=== PATIENT | male | born 1935 | race African-American/Black ===

== ENCOUNTER 2018-11-30 21:12 | Inpatient (IN) | payer MEDICARE ==
[2018-12-01] MEDS ORDERED: Aspirin 325 MG TAB ONE (04:50)
[2018-12-01 06:28] VITALS: BMI 27.8
--- NOTE | 2018-12-01 07:20 | ULT ---
LEFT LOWER EXTREMITY DOPPLER VENOUS ULTRASOUND: Date: 12/01/18 INDICATION: Left lower extremity pain and edema for 1 week with left lower extremity redness for 2 days. TECHNIQUE: Jacinto scale, color Doppler, and vascular duplex with spectral analysis was performed of the deep venou s structures of the left lower extremity. The common femoral vein, superficial femoral vein, proximal greater saphenous vein, proximal greater profunda vein, popliteal, and posterior tibial veins were a ssessed. FINDINGS: Normal compression, flow, and augmentation was seen within the deep venous structures of the left low er extremity. There is mild soft tissue edema seen posterior to the left knee. There are mildly promi nent lymph nodes within the left inguinal region. IMPRESSION: 1. No evidence of deep venous thrombosis within the left lower extremity. 2. Mildly prominent lymph nodes of left inguinal region. 3. Nonspecific subcutaneous edema posterior to the left knee. POS: OFF
[2018-12-01] MEDS ORDERED: hydrALAZINE 20 MG/ML VIAL SLOW IVP PRN (09:14)
[2018-12-01] MEDS: Vancomycin HCl 1 GM in Premix Bag 1 BAG IVPB SCH ×2 (09:56→21:04)
--- NOTE | 2018-12-01 10:06 | HP ---
PRIMARY CARE PHYSICIAN: Dr. Rios. CHIEF COMPLAINT: Swelling in the left leg as well as my right arm and leg are not working. HISTORY OF PRESENT ILLNESS: Mr. Whitaker is a pleasant 83-year-old gentleman, who has a history of hypertension, atrial fibrillation, and heart failure. He is not on anticoagulation due to a GI bleed. He says that everything started on . He says that he tried to get up and noticed that he was having difficulty with his strength in his right arm as he was trying to prop himself up, and then, he says he was not able to walk correctly either. He says he also noticed on , some swelling in his left leg as well as fever. He says prior to this, he was actually feeling well. He also noted some soreness in his left leg as well, and for this reason, he went to his primary care physician's office, who then sent him to the hospital [facility] in [place] to get evaluated. Due to the concerns for possible stroke as well as cellulitis in the left leg, he was sent to our facility for further evaluation. The patient denies any chest pain or shortness of breath. He denies any abdominal pain. He did say he vomited on as well, but no vomiting of any blood, and he does admit to some dark stools as well. REVIEW OF SYSTEMS: CONSTITUTIONAL: He has had subjective fever, but no chills, no night sweats, no weight loss. HEENT: He denies any headaches. No dizziness. No visual changes. No sore throat. No rhinorrhea or neck pain. No adenopathy. PULMONARY: No hemoptysis. No cough. No wheezing. CARDIOVASCULAR: He denies any chest pain. No shortness of breath. No PND. No orthopnea. GASTROINTESTINAL: No abdominal pain. No nausea. No vomiting. No change in bowels. He did have some nausea and vomiting that is on , but no change in bowels. GENITOURINARY: No urinary frequency or hematuria. No hesitancy. NEUROLOGIC: As in the history of present illness. SKIN AND INTEGUMENT: He notices some redness as well as swelling in the left lower extremity. ENDOCRINE: No heat or cold intolerance. PAST MEDICAL HISTORY: Significant for transient ischemic attack, atrial fibrillation, congestive heart failure unknown type, coronary artery disease, cerebral vascular disease, hypertension, GI bleed a year ago, and COPD. PAST SURGICAL HISTORY: He has had a stent in the left lower extremity, back surgery. He had cardiac catheterization, shoulder surgery, and spine surgery. ALLERGIES: NO KNOWN DRUG ALLERGIES. SOCIAL HISTORY: He is . He smokes about a cigarette a day. Prior to that, he did smoke heavier. Denies any alcohol use. He has 9 children, and he would like to be a full code. FAMILY HISTORY: Significant for diabetes in his mother, sister, and brother. CURRENT MEDICATIONS: His current medications are taken from the records from the [facility] in [place] and these include, 1. Allopurinol 100 mg daily. 2. Aspirin 81 mg daily. 3. Lipitor 20 mg daily. 4. Carvedilol 3.125 mg twice a day. 5. Omnicef 300 mg daily. 6. Vitamin D3 1000 units daily. 7. CoQ10 100 mg daily. 8. Ferrous gluconate 324 mg daily. 9. Lasix 40 mg daily. 10. Apresoline 25 mg daily. 11. Isosorbide mononitrate extended release 30 mg daily. 12. Magnesium oxide 400 mg daily. 13. Nitrostat 0.4 sublingual daily. PHYSICAL EXAMINATION: GENERAL: He is alert and oriented. He appears to be in no acute distress. He is well developed and well nourished. VITAL SIGNS: Blood pressure is 123/60, heart rate is 92, respiratory rate of 16, temperature is 98.7. HEENT: Pupils are equal, round, and reactive. Extraocular muscles are intact. Sclerae are anicteric. Throat, there is no erythema, no exudates. NECK: No adenopathy. No bruits. LUNGS: Clear to auscultation. There is no wheezing, no rales, no rhonchi. CARDIOVASCULAR: He has a normal S1 and S2. His heart rate is irregular. There are no murmurs or clicks. No rubs. ABDOMEN: Soft. It is nontender and nondistended. Positive for bowel sounds. There is no rebound, no guarding, no organomegaly. EXTREMITIES: He has significant swelling in the left lower extremity below the knee, all the way from the knee down. The left leg is about twice as large as the right. It is erythematous. He does have some chronic venous stasis changes. There is some warmth to the area as well. NEUROLOGIC: He has decrease in his both upper and lower extremity strength on the right, which is quite prominent as compared to the left. However, again his cranial nerves are intact. There is no facial droop. SKIN: His skin again had the chronic skin changes and some erythema and also some mycotic nails. LABORATORY DATA: Lab results from the [facility] includes a white blood cell count of 13.3, hemoglobin of 8.7, hematocrit is 26.2. Glucose is 104, creatinine is 2.34. IMAGING STUDIES: CT of the brain showed no lobar infarct. There was no hemorrhage or mass, and there were some chronic ischemic changes. The patient had an EKG, which was atrial fibrillation and the heart rate is 104. This is by my reading. ASSESSMENT: This is a pleasant 83-year-old gentleman, who presents to the emergency room with, 1. Right-sided weakness. This is likely due to a CVA, possibly due to his atrial fibrillation as he is not currently on anticoagulation. He will be admitted, and we will get an MRI of the brain as well as an echo and carotid Dopplers and consider consulting Cardiology with regard to whether or not to resume anticoagulation. 2. Left lower extremity cellulitis. He had a venous ultrasound, which was negative for DVT. We will continue broad-spectrum antibiotics. He will likely need a couple of days of IV antibiotics due to the stents in place, and then, hopefully, can switch to an oral antibiotic. 3. Anemia. We will do some iron studies to try to determine the type of anemia and monitor the counts. 4. Hypertension. We will need to reconcile and restart his antihypertensive medications as well as p.r.n.'s. 5. Chronic obstructive pulmonary disease. We will continue DuoNeb's as needed and further recommendations to follow. Job ID: [id number]
[2018-12-01] MEDS: hydrALAZINE 25 MG TAB PO SCH ×2 (11:54→17:31)
--- NOTE | 2018-12-01 12:24 | MRI ---
BRAIN MRI WITHOUT CONTRAST: Date: 12/01/18 HISTORY: Transient ischemic attack. COMPARISON: None. FINDINGS: Calvarium has a normal T1 marrow signal intensity. Midline brain parenchymal structures are unremarka ble. No hemorrhage on the axial gradient echo sequence. Small focus of hypointensity in the left lentiform nucleus likely due to remote hemorrhagic lacunar infarct. No parenchymal mass, mass effect, or midline shift. Brain volume is age-appropriate. Cortical elkins-wh ite matter differentiation is preserved, with the exception of the left temporoparietal region. There is malacic and gliotic change in this region, likely due to remote insult. There is a cortical/subco rtical T2 and FLAIR hyperintensity along the medial aspect of the right occipital lobe. There is a se cond similar appearance also noted in the right occipital lobe. Two regions of cortical infarction ar e suspected, involving the right [employer]IONICS ELECTRICAL ENGINEER distribution. Additionally, there appears to be a focus of restr icted diffusion involving the right cerebellar hemisphere. Adequate aeration of the sinuses and mastoid air cells. Central arterial flow-voids are maintained. Extensive white matter Hypointensities due to chronic small vessel ischemic changes are noted. There is a mucus retention cyst in the left maxillary sinus. IMPRESSION: 1. Right [employer] ELECT[employer]ICAL ENGINEER distribution infarct. 2. Remote insult with malacic and gliotic change in the left temporoparietal region. 3. Extensive white matter hyperintensities due to chronic small vessel ischemic change. POS: JOANN
[2018-12-01 12:28] LABS: Iron 9 ug/dL (65-175); Iron Binding Capacity, Total 240 mcg/dL (261-462)
[2018-12-01] MEDS: Piperacillin/Tazobactam 2.25 GM in Sodium Chloride 0.9% 100 ML IVPB SCH ×2 (14:08→21:01)
[2018-12-01] MEDS: Heparin 5,000 UNITS/ML VIAL SC SCH ×2 (14:09→21:03)
--- NOTE | 2018-12-01 15:59 | ULT ---
US Carotid Doppler STANDARD History: Infarction Comparison: None. Findings: Real-time grayscale, color, and spectral analysis of the extracranial carotid and vertebral arteries was performed. Antegrade flow both vertebral arteries. No elevated peak systolic velocities within the internal omalley tid arteries. Right ICA/CCA ratio is 1.46 and left ICA/CCA ratio is 1.20. Impression: No hemodynamically significant stenosis.
[2018-12-01] MEDS ORDERED: Non-Formulary Item 1 EACH (Ferrous Sulfate 325 MG) PO SCH (17:00)
[2018-12-01] MEDS: Ferrous Sulfate 325 MG TAB PO SCH (17:31)
[2018-12-01] MEDS ORDERED: Prevnar 13-Val Conj/PF 0.5 ML SYRINGE IM ONE (21:00)
[2018-12-01] MEDS: Acetaminophen 325 MG TAB PO PRN (21:02)
[2018-12-01] MEDS: Atorvastatin Calcium 40 MG TAB PO SCH (21:03)
--- NOTE | 2018-12-01 23:31 | CON ---
DATE OF CONSULTATION: 12/01/2018 CONSULTING PHYSICIAN: Hospitalist Service. IMPRESSION: 1. 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 2. 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 3. Aspirin failure. PLAN: 1. Add Plavix. 2. Review carotid ultrasound. 3. PT evaluation. HISTORY OF PRESENT ILLNESS: Mr. Whitaker is an 83-year-old gentleman, who reports that he noticed he was having difficulty getting up from his chair. He felt like the left side was not responding appropriately. There was no associated headache or blurred vision. He had a prior stroke a few years back, resulting in some transient right-sided weakness. He reports he is pretty much back to his baseline prior to this new event. He had been compliant with his aspirin and statin. PAST MEDICAL HISTORY: Hypertension, hyperlipidemia, stroke. ALLERGIES: NONE. SOCIAL HISTORY: No tobacco use. FAMILY HISTORY: Noncontributory. REVIEW OF SYSTEMS: Ten-system review of systems is otherwise negative. PHYSICAL EXAMINATION: GENERAL: He is a healthy-appearing elderly man, in no acute distress. VITAL SIGNS: Have been stable. He is afebrile. HEENT: Pupils are equal. Conjunctivae clear. Oropharynx clear. Cranium, normocephalic and atraumatic. NECK: Supple. No lymphadenopathy. EXTREMITIES: 3+ edema in the legs. NEUROLOGIC: Alert and appropriate. His speech is fluent and clear. He follows commands appropriately. There was no facial asymmetry. No fix or drift was noted. Rapid alternating movements were equal. He had some proximal weakness in the right shoulder. He can raise both legs against gravity. Sensation was intact to touch. Gait was not tested. LABORATORY DATA: EKG showed some atrial fibrillation, apparently was transient. SUMMARY: This elderly man with a new stroke in the posterior cerebral arteries, had distribution. He was compliant with his medication. Given his age, I would add Plavix rather than anticoagulate him at this point. We have therapy to assess his gait to see how stable he is before he is discharged home. He has been getting around with a cane prior to admission. He is requesting a wheelchair. Job ID: [id number]
[2018-12-02 04:22] LABS: Anion Gap 17 mmol/L (10-20); BUN (Urea Nitrogen) 50 mg/dL (8.4-25.7); Calc. Creatinine Clearance 34 mL/min (70-130); Calcium 9.2 mg/dL (7.8-10.44); Carbon Dioxide 20 mmol/L (23-31); Cardiac Risk 2.2 (Less than 4.5); Chloride 102 mmol/L (98-107); Cholesterol 66 mg/dl (< 200 Desired); Estimated GFR-MDRD 43; Glucose 109 mg/dL (83-110); HDL Cholesterol 30 mg/dL (>60 Neg Risk); LDL Cholesterol, Calculated 20 mg/dL; Sodium 135 mmol/L (136-145); Triglycerides 82 mg/dL (Less than 150)
[2018-12-02 05:23] LABS: Anisocytosis SLIGHT = 6-15 cells (100X) (0-5/hpf); Band 10 % (5-11); Eosinophils 2 % (0-10); Hemoglobin 9.4 g/dL (14.0-18.0); Lymphocytes 9 % (21-51); MDiff Complete? YES; Macrocytosis SLIGHT = 6-15 cells (100X) (0-5/hpf); Mean Corpuscular HGB CONC 32.7 g/dL (32.0-36.0); Mean Corpuscular Hemoglobin 34.3 pg (27.0-31.0); Monocytes 11 % (0-10); Neutrophil 68 % (42-75); Platelet Count 185 thou/uL (130-400); RBC Distribution Width 16.1 % (11.5-14.5); Red Blood Cell (RBC) Count 2.75 mill/uL (4.70-6.10); White Blood Cell (WBC) Count 11.9 thou/uL (4.8-10.8)
[2018-12-02] MEDS: Piperacillin/Tazobactam 2.25 GM in Sodium Chloride 0.9% 100 ML IVPB SCH ×3 (07:30→20:58)
[2018-12-02] MEDS ORDERED: CHOLECALCIFEROL 1000 MG PO SCH (09:00)
[2018-12-02] MEDS ORDERED: Non-Formulary Item 1 EACH (Ubidecarenone [Coq-10] 100 MG) PO SCH (09:00)
[2018-12-02] MEDS ORDERED: Aspirin 325 mg Enteric Coated Tablet PO SCH (09:00)
[2018-12-02] MEDS ORDERED: Furosemide 80 MG TAB PO SCH (09:00)
--- NOTE | 2018-12-02 09:17 | PDOC.HOSPP ---
- Subjective Encounter Date: 12/02/18 Encounter Time: 09:16 Subjective: Mr. Whitaker was seen today in follow-up of Right sided weakness and Left leg swelling. He notes more swelling in his left leg, it is now oozing fluid. He notes a bit improved strength in the right leg. - Objective Vital Signs & Weight: Vital Signs (12 hours) Temp Pulse Resp BP Pulse Ox 12/02/18 04:00 98.7 F 94 19 133/62 99 12/01/18 23:51 99.7 F H 99 18 130/60 98 Weight Admit Weight 172 lb 12.8 oz Weight 172 lb 12.8 oz I&O: 12/01/18 12/02/18 12/03/18 06:59 06:59 06:59 Intake Total 300 480 Output Total 400 300 Balance -100 180 Result Diagrams: 12/02/18 03:41 12/02/18 03:41 ROS - Medication Medications: Active Medications Generic Name Dose Route Start Last Admin Trade Name Freq PRN Reason Stop Dose Admin Acetaminophen 650 mg 12/01/18 09:14 12/01/18 21:02 Tylenol PO 650 mg Q4H PRN Administration Headache/Fever/Mild Pain (1-3) Atorvastatin Calcium 40 mg 12/01/18 21:00 12/01/18 21:03 Lipitor PO 40 mg HS JASS Administration Ferrous Sulfate 325 mg 12/01/18 17:00 12/01/18 17:31 Feosol PO 325 mg BID-WM JASS Administration Heparin Sodium (Porcine) 5,000 units 12/01/18 15:00 12/01/18 21:03 Heparin SC 5,000 units TID JASS Administration Hydralazine HCl 25 mg 12/01/18 12:00 12/01/18 17:31 Apresoline PO 25 mg TID-WM JASS Administration Piperacillin Sod/Tazobactam 100 mls @ 200 mls/hr 12/01/18 14:00 12/02/18 07: 30 Sod 2.25 gm/ Sodium Chloride IVPB 100 mls Q8HR JASS Administration Vancomycin HCl 1 gm/ Device 200 mls @ 200 mls/hr 12/01/18 10:00 12/01/18 21: 04 IVPB 200 mls 1000,2200 JASS Administration Sodium Chloride 10 ml 12/01/18 09:14 12/01/18 21:04 Flush - Normal Saline IVF 10 ml PRN PRN Administration Saline Flush - Exam Eye: PERRL, anicteric sclera Heart: no murmur, no gallops, no rubs, irregular Respiratory: CTAB, no wheezes, no rales, no ronchi, normal chest expansion, no tachypnea, normal percussion Gastrointestinal: soft, non-tender, non-distended, normal bowel sounds, no palpable masses, no hepatomegaly, no splenomegaly Extremities: 2+ LE edema (Tense edema in the left lower extremity with oozing, + erythema and warmth) Hosp A/P (1) Acute CVA (cerebrovascular accident) Code(s): I63.9 - CEREBRAL INFARCTION, UNSPECIFIED Status: Acute (2) Cellulitis of left leg Code(s): L03.116 - CELLULITIS OF LEFT LOWER LIMB Status: Acute (3) Macrocytic anemia Code(s): D53.9 - NUTRITIONAL ANEMIA, UNSPECIFIED Status: Acute (4) GI bleed Code(s): K92.2 - GASTROINTESTINAL HEMORRHAGE, UNSPECIFIED Status: Acute (5) Afib Code(s): I48.91 - UNSPECIFIED ATRIAL FIBRILLATION Status: Chronic - Plan * Acute CVA- discussed with the patient- this is likely due to AFIB- as he has not been on anticoagulation due to previous GI- bleeds * Cellulitis of the left leg- continue IV antibiotics- will repeat the venous ultrasound ( serial US) to rule out DVT, as the leg has extreme swelling, with oozing- keep elevated * Anemia- chronic- he says he sees a [facility], and gets Epogen injections and is on iron therapy. He says he has had a full GI work-up in the past including a capsule study in [facility], and they could not find out the etiology of the Bleed. * Chronic AFIB- will consult Cardiology- see if he can re-start anticoagulation * Await Neurology consult * PT/OT
[2018-12-02 10:40] LABS: Folate (Folic Acid) 10.9 ng/mL (7.0-31.4)
[2018-12-02] MEDS: Furosemide 40 MG TAB PO SCH (10:44)
[2018-12-02] MEDS: Ferrous Sulfate 325 MG TAB PO SCH ×2 (10:44→16:53)
[2018-12-02] MEDS: Ubidecarenone 50 MG CAP PO SCH (10:44)
[2018-12-02] MEDS: hydrALAZINE 25 MG TAB PO SCH ×3 (10:44→16:53)
[2018-12-02] MEDS: Allopurinol 100 MG TAB PO SCH (10:45)
[2018-12-02] MEDS: Isosorbide Mononitrate (ER) 30 MG TAB PO SCH (10:46)
[2018-12-02] MEDS: Heparin 5,000 UNITS/ML VIAL SC SCH ×3 (10:46→20:59)
--- NOTE | 2018-12-02 11:00 | ULT ---
EXAM: Left lower extremity venous duplex: Deep veins evaluated with color Doppler, spectral analysis, and compression. INDICATIONS: Left lower extremity pain and edema. FINDINGS: Deep veins interrogated include common femoral vein, femoral vein, popliteal vein, and post erior tibial vein. These veins show normal compression and blood flow. No evidence of DVT. Incidental note of prominent lymph nodes of the left inguinal region. There is soft tissue edema. Cor relate clinically. IMPRESSION: No evidence of DVT. Additional findings are detailed above.
[2018-12-02] MEDS: Vancomycin HCl 1 GM in Premix Bag 1 BAG IVPB SCH ×3 (12:05→22:13)
[2018-12-02] MEDS: Acetaminophen 325 MG TAB PO PRN ×2 (16:54→20:59)
--- NOTE | 2018-12-02 17:47 | CON ---
DATE OF CONSULTATION: 12/02/2018 REASON FOR CONSULTATION: Atrial fibrillation, recurrent stroke. HISTORY OF PRESENT ILLNESS: Mr. Whitaker is a very pleasant elderly gentleman, who was admitted to the hospital with acute stroke. The patient was on aspirin when this occurred. He has taken aspirin 81 mg a day. He underwent evaluation here. He was found to be mildly anemic, which is a chronic problem. He also had MRI of the brain, which revealed right posterior cerebral artery distribution infarct. Also, there is evidence of previous strokes. Also, he has history of coronary artery disease, the details are not available to me. The patient's family states he was previously on I believe aspirin plus Coumadin. They know his Coumadin, but he kept having to get recurrent blood transfusions. It is endoscopies to confine the source of bleeding. He was also placed on Eliquis, unknown dose, but had recurrent bleeding, ultimately he was taken off these medicines, but left on aspirin. The patient did have a hemoglobin of 8.1 back in 2016. At that time, he had been on Plavix and Coumadin. I believe he is also on aspirin as well from what I can tell from the notes. The patient has been seeing in [place]. PHYSICAL EXAMINATION: GENERAL: This is a pleasant elderly gentleman, in no distress. He says he is cold. VITAL SIGNS: Blood pressure 143/65 and pulse 100, it is irregular. LUNGS: Clear. CARDIAC: Irregularly irregular. ABDOMEN: Soft and nontender. EXTREMITIES: There is moderate peripheral edema. PERTINENT LABORATORIES: Creatinine is 1.83 and estimated GFR is 43. Iron level is 9 and ferritin 133. Cholesterol is 20. EKG, atrial fibrillation. ASSESSMENT: 1. Chronic atrial fibrillation. 2. Recurrent stroke, embolic on aspirin. 3. He has a history of cellulitis. 4. History of gastrointestinal blood loss on anticoagulants plus Plavix. PLAN: Difficult situation discussed with the family. We could try a low dose Eliquis without aspirin. They are not sure if that ever been tried. Explained aspirin alone or even aspirin plus Plavix will not give him protection from embolic stroke from his heart with atrial fibrillation. Unfortunately, this is a different kind of thrombus, which does not respond to antiplatelet drugs. After some consideration the best option is to stop the aspirin, wait a few days and then began reduced dose Eliquis. If he is able to tolerate that, consideration for Watchman could be done long-term. For now, we will stop the aspirin, wait a few days and start Eliquis. Continue to monitor blood counts. He sees weekly. Therefore, the blood count should be monitored. If his blood counts are dropping, then we could take him off Eliquis, put him back on aspirin, but then it would not be feasible to put a Watchman left atrial appendage occlusion device in place as that he needs to be on Eliquis for at least 6 weeks following the procedure and usually for couple weeks prior to the procedure. In that case, he should be on aspirin alone, but unfortunately would not be protected from a recurrent embolic stroke from atrial fibrillation. Difficult situation discussed in detail with the family. Job ID: [id number]
[2018-12-02] MEDS: Atorvastatin Calcium 40 MG TAB PO SCH (20:59)
[2018-12-02] MEDS ORDERED: Iron, Sodium Ferric Gluconate 250 MG in Sodium Chloride 0.9% 100 ML IVPB SCH (21:00)
[2018-12-02 21:54] LABS: Vancomycin, Trough 27.2 ug/mL
[2018-12-03] MEDS: Piperacillin/Tazobactam 2.25 GM in Sodium Chloride 0.9% 100 ML IVPB SCH ×3 (05:34→21:21)
[2018-12-03] MEDS: hydrALAZINE 25 MG TAB PO SCH ×3 (08:45→17:50)
[2018-12-03] MEDS: Allopurinol 100 MG TAB PO SCH (08:46)
[2018-12-03] MEDS: Ubidecarenone 50 MG CAP PO SCH (08:46)
[2018-12-03] MEDS: Isosorbide Mononitrate (ER) 30 MG TAB PO SCH (08:47)
[2018-12-03] MEDS: Heparin 5,000 UNITS/ML VIAL SC SCH (08:47)
[2018-12-03] MEDS: Ferrous Sulfate 325 MG TAB PO SCH ×2 (08:47→17:54)
[2018-12-03] MEDS: Furosemide 40 MG TAB PO SCH (08:47)
[2018-12-03] MEDS ORDERED: Furosemide 40 MG TAB PO SCH (09:38)
[2018-12-03] MEDS: Furosemide 40 MG/4 ML VIAL SLOW IVP SCH (15:26)
[2018-12-03] MEDS: Apixaban 2.5 MG TAB PO SCH (21:20)
[2018-12-03] MEDS: Atorvastatin Calcium 40 MG TAB PO SCH (21:20)
[2018-12-03] MEDS ORDERED: Vancomycin HCl 1.5 GM in Sodium Chloride 0.9% 250 ML 300 ML IVPB SCH (22:00)
[2018-12-04 05:52] LABS: ALT (SGPT) 50 U/L (8-55); AST (SGOT) 56 U/L (5-34); Albumin 2.9 g/dL (3.4-4.8); Alkaline Phosphatase 167 U/L (40-150); Anion Gap 12 mmol/L (10-20); BUN (Urea Nitrogen) 36 mg/dL (8.4-25.7); Bilirubin, Total 0.9 mg/dL (0.2-1.2); Calc. Creatinine Clearance 34 mL/min (70-130); Calcium 9.1 mg/dL (7.8-10.44); Carbon Dioxide 25 mmol/L (23-31); Chloride 102 mmol/L (98-107); Estimated GFR-MDRD 44; Globulin 4.3 g/dL (2.4-3.5); Glucose 155 mg/dL (83-110); Potassium 3.7 mmol/L (3.5-5.1); Protein, Total 7.2 g/dL (5.8-8.1); Sodium 135 mmol/L (136-145)
[2018-12-04 05:56] LABS: #Eosinphils 0.1 thou/uL (0.0-0.7); #Monocytes 1.1 thou/uL (0.11-0.59); #Neutrophils 11.3 thou/uL (1.40-6.50); %Basophils 0.1 % (0.0-1.0); %Eosinophils 0.8 % (0.0-10.0); %Lymphocytes 7.6 % (21.0-51.0); %Monocytes 8.3 % (0.0-10.0); %Neutrophils 83.2 % (42.0-75.0); Hemoglobin 7.9 g/dL (14.0-18.0); Mean Corpuscular HGB CONC 31.7 g/dL (32.0-36.0); Mean Corpuscular Hemoglobin 33.2 pg (27.0-31.0); Mean Platelet Volume 8.1 fL (7.4-10.4); Platelet Count 341 thou/uL (130-400); RBC Distribution Width 16.3 % (11.5-14.5); Red Blood Cell (RBC) Count 2.39 mill/uL (4.70-6.10); White Blood Cell (WBC) Count 13.6 thou/uL (4.8-10.8)
[2018-12-04] MEDS: Piperacillin/Tazobactam 2.25 GM in Sodium Chloride 0.9% 100 ML IVPB SCH ×3 (06:25→21:01)
[2018-12-04] MEDS: Furosemide 40 MG/4 ML VIAL SLOW IVP SCH ×2 (06:25→14:15)
[2018-12-04] MEDS ORDERED: Furosemide 80 MG TAB PO SCH (07:30)
[2018-12-04] MEDS: Allopurinol 100 MG TAB PO SCH (08:35)
[2018-12-04] MEDS: Apixaban 2.5 MG TAB PO SCH ×2 (08:35→21:01)
[2018-12-04] MEDS: hydrALAZINE 25 MG TAB PO SCH ×3 (08:35→16:51)
[2018-12-04] MEDS: Ferrous Sulfate 325 MG TAB PO SCH ×2 (08:35→16:52)
[2018-12-04] MEDS: Isosorbide Mononitrate (ER) 30 MG TAB PO SCH (08:36)
[2018-12-04] MEDS: Ubidecarenone 50 MG CAP PO SCH (08:36)
[2018-12-04] MEDS ORDERED: Carvedilol 6.25 MG TAB PO SCH (09:30)
--- NOTE | 2018-12-04 10:21 | PRG ---
DATE OF SERVICE: 12/04/2018 SUBJECTIVE: Mr. Whitaker is doing well. No complaints. He is moving his arms and legs well. No chest pain or pressure. OBJECTIVE: VITAL SIGNS: Blood pressure 130/80, pulse is 100 and it is irregular. LUNGS: Clear. CARDIAC: Irregularly irregular. ABDOMEN: Soft, nontender. ASSESSMENT: 1. Chronic atrial fibrillation. 2. Embolic stroke despite aspirin. 3. History of strokes in the past. 4. History of slowed iron loss, slow gastrointestinal blood loss when he is on anticoagulation. PLAN: Discussed with Dr. Pinzon in [place], who is his primary physical science aide. At this point, it seems the best option would be to stop the aspirin and give him reduced dose Eliquis 2.5 mg twice a day, consideration for trying to get a Watchman device placed. He will need close followup to make sure his hemoglobin is not further dropping. To get a Watchman placed, he would have to be able to tolerate the Eliquis for at least 2 weeks before the procedure, at least 6 weeks afterward. His hemoglobin is 25 this morning. I would recommend watching him one more day in the hospital, and then he will need close followup of his hemoglobin and hematocrit either with Dr. Pinzon or his sld teacher to make sure it is not dropping further. If he is unable to tolerate the Eliquis even short-term, then that will not be an option for him in terms of the Watchman. He will need to follow up with Dr. Pinzon when he goes home. He would like us to refer him to Dr. Ferreira if he is able to tolerate the Eliquis for Watchman, that will be fine or he may have another location director that he likes to work with. Job ID: [id number]
[2018-12-04] MEDS ORDERED: Iron Sucrose Complex 100 MG in Sodium Chloride 0.9% 100 ML IVPB SCH (11:00)
--- NOTE | 2018-12-04 13:13 | PRG ---
DATE OF SERVICE: 12/04/2018 Mr. Whitaker reports that he is feeling well. He denies any new focal neurologic symptoms. He denies any blurred vision or double vision. His carotid ultrasound showed no evidence of stenosis. His echocardiogram showed an ejection fraction of 55% to 60%. He had no other complaints today. On exam, his blood pressure is 121/60, temperature is 98.8. His speech is fluent and clear. There is no facial asymmetry. No focal weakness was noted. No abnormal movements were seen. Mr. Whitaker will continue his Eliquis and Lipitor. Can be discharged home after discretion and will be happy to follow up with him as an outpatient if he has any further problems. Job ID: [id number]
--- NOTE | 2018-12-04 16:37 | PDOC.HOSPP ---
- Subjective Encounter Date: 12/03/18 Encounter Time: 10:30 Subjective: pt up in bed no complains - Objective Vital Signs & Weight: Vital Signs (12 hours) Temp Pulse Pulse Pulse Resp BP BP 12/04/18 16:00 99.4 F 98 20 12/04/18 13:04 107 H 120/56 L 12/04/18 13:03 98.9 F 12/04/18 11:38 99.4 F 107 H 20 12/04/18 10:54 131/85 12/04/18 09:38 109 H 97 134/62 12/04/18 08:35 103 H 131/85 12/04/18 08:29 12/04/18 07:45 98.5 F 103 H 20 BP BP Pulse Ox 12/04/18 16:00 125/58 L 98 12/04/18 13:04 12/04/18 13:03 120/56 L 12/04/18 11:38 126/59 L 100 12/04/18 10:54 12/04/18 09:38 137/70 12/04/18 08:35 12/04/18 08:29 100 12/04/18 07:45 131/85 99 Weight Admit Weight 172 lb 12.8 oz Weight 172 lb 12.8 oz I&O: 12/03/18 12/04/18 12/05/18 06:59 06:59 06:59 Intake Total 1920 1250 Output Total 1879 2015 863 Balance 94 -3348 -950 Result Diagrams: 12/04/18 04:52 12/04/18 04:52 ROS - Review of Systems Respiratory: denies: cough, dry, shortness of breath, hemoptysis, SOB with excertion, pleuritic pain, sputum, wheezing, other Cardiovascular: denies: chest pain, palpitations, orthopnea, paroxysmal noc. dyspnea, edema, light headedness, other Gastrointestinal: denies: nausea, vomitting, abdominal pain, diarrhea, constipation, melena, hematochezia, other - Medication Medications: Active Medications Generic Name Dose Route Start Last Admin Trade Name Freq PRN Reason Stop Dose Admin Acetaminophen 650 mg 12/01/18 09:14 12/02/18 20:59 Tylenol PO 650 mg Q4H PRN Administration Headache/Fever/Mild Pain (1-3) Allopurinol 150 mg 12/02/18 09:00 12/04/18 08:35 Zyloprim PO 150 mg DAILY JASS Administration Apixaban 2.5 mg 12/03/18 21:00 12/04/18 08:35 Eliquis PO 2.5 mg BID JASS Administration Atorvastatin Calcium 40 mg 12/01/18 21:00 12/03/18 21:20 Lipitor PO 40 mg HS JASS Administration Cholecalciferol 1,000 units 12/02/18 09:00 12/04/18 08:36 Vitamin D3 PO 1,000 units DAILY JASS Administration Coenzyme Q10 100 mg 12/02/18 09:00 12/04/18 08:36 Coenzyme Q10 PO 100 mg DAILY JASS Administration Ferrous Sulfate 325 mg 12/01/18 17:00 12/04/18 08:35 Feosol PO 325 mg BID-WM JASS Administration Furosemide 40 mg 12/03/18 14:00 12/04/18 14:15 Lasix SLOW IVP 40 mg 0600,1400 JASS Administration Hydralazine HCl 25 mg 12/01/18 12:00 12/04/18 13:04 Apresoline PO 25 mg TID-WM JASS Administration Piperacillin Sod/Tazobactam 100 mls @ 200 mls/hr 12/01/18 14:00 12/04/18 14: 21 Sod 2.25 gm/ Sodium Chloride IVPB 100 mls Q8HR JASS Administration Isosorbide Mononitrate 30 mg 12/02/18 09:00 12/04/18 08:36 Imdur Er PO 30 mg DAILY JASS Administration Sodium Chloride 10 ml 12/01/18 09:14 12/03/18 21:20 Flush - Normal Saline IVF 10 ml PRN PRN Administration Saline Flush - Exam Neck: negative: supple, symmetric, no JVD, no thyromegaly, no lymphadenopathy, no carotid bruit, JVD Heart: negative: RRR, no murmur, no gallops, no rubs, normal peripheral pulses, irregular, diminshed peripheral pulses, murmur present, II/IV, III/IV Respiratory: negative: CTAB, no wheezes, no rales, no ronchi, normal chest expansion, no tachypnea, normal percussion, rales, rhonchi, tachypneic, wheezes Extremities: 1+ LE edema Extremeties - other findings: left leg Hosp A/P (1) Acute CVA (cerebrovascular accident) Code(s): I63.9 - CEREBRAL INFARCTION, UNSPECIFIED Status: Acute (2) Cellulitis of left leg Code(s): L03.116 - CELLULITIS OF LEFT LOWER LIMB Status: Acute (3) Anemia Code(s): D64.9 - ANEMIA, UNSPECIFIED Status: Acute (4) GI bleed Code(s): K92.2 - GASTROINTESTINAL HEMORRHAGE, UNSPECIFIED Status: Acute (5) Afib Code(s): I48.91 - UNSPECIFIED ATRIAL FIBRILLATION Status: Chronic - Plan will change lasix to iv, will discontinue vanco. will continue to monitor hh. ASA stopped. given his hx of gi bleed will start AC marciano.
--- NOTE | 2018-12-04 16:43 | PDOC.HOSPP ---
- Subjective Encounter Date: 12/04/18 Encounter Time: 11:30 Subjective: pt up in chair no complains - Objective Vital Signs & Weight: Vital Signs (12 hours) Temp Pulse Pulse Pulse Resp BP BP 12/04/18 16:00 99.4 F 98 20 12/04/18 13:04 107 H 120/56 L 12/04/18 13:03 98.9 F 12/04/18 11:38 99.4 F 107 H 20 12/04/18 10:54 131/85 12/04/18 09:38 109 H 97 134/62 12/04/18 08:35 103 H 131/85 12/04/18 08:29 12/04/18 07:45 98.5 F 103 H 20 BP BP Pulse Ox 12/04/18 16:00 125/58 L 98 12/04/18 13:04 12/04/18 13:03 120/56 L 12/04/18 11:38 126/59 L 100 12/04/18 10:54 12/04/18 09:38 137/70 12/04/18 08:35 12/04/18 08:29 100 12/04/18 07:45 131/85 99 Weight Admit Weight 172 lb 12.8 oz Weight 172 lb 12.8 oz I&O: 12/03/18 12/04/18 12/05/18 06:59 06:59 06:59 Intake Total 1920 1250 Output Total 1870 6088 184 Balance 13 -0373 -950 Result Diagrams: 12/04/18 04:52 12/04/18 04:52 ROS - Review of Systems Respiratory: denies: cough, dry, shortness of breath, hemoptysis, SOB with excertion, pleuritic pain, sputum, wheezing, other Cardiovascular: denies: chest pain, palpitations, orthopnea, paroxysmal noc. dyspnea, edema, light headedness, other Gastrointestinal: denies: nausea, vomitting, abdominal pain, diarrhea, constipation, melena, hematochezia, other - Medication Medications: Active Medications Generic Name Dose Route Start Last Admin Trade Name Freq PRN Reason Stop Dose Admin Acetaminophen 650 mg 12/01/18 09:14 12/02/18 20:59 Tylenol PO 650 mg Q4H PRN Administration Headache/Fever/Mild Pain (1-3) Allopurinol 150 mg 12/02/18 09:00 12/04/18 08:35 Zyloprim PO 150 mg DAILY JASS Administration Apixaban 2.5 mg 12/03/18 21:00 12/04/18 08:35 Eliquis PO 2.5 mg BID JASS Administration Atorvastatin Calcium 40 mg 12/01/18 21:00 12/03/18 21:20 Lipitor PO 40 mg HS JASS Administration Cholecalciferol 1,000 units 12/02/18 09:00 12/04/18 08:36 Vitamin D3 PO 1,000 units DAILY JASS Administration Coenzyme Q10 100 mg 12/02/18 09:00 12/04/18 08:36 Coenzyme Q10 PO 100 mg DAILY JASS Administration Ferrous Sulfate 325 mg 12/01/18 17:00 12/04/18 08:35 Feosol PO 325 mg BID-WM JASS Administration Furosemide 40 mg 12/03/18 14:00 12/04/18 14:15 Lasix SLOW IVP 40 mg 0600,1400 JASS Administration Hydralazine HCl 25 mg 12/01/18 12:00 12/04/18 13:04 Apresoline PO 25 mg TID-WM JASS Administration Piperacillin Sod/Tazobactam 100 mls @ 200 mls/hr 12/01/18 14:00 12/04/18 14: 21 Sod 2.25 gm/ Sodium Chloride IVPB 100 mls Q8HR JASS Administration Isosorbide Mononitrate 30 mg 12/02/18 09:00 12/04/18 08:36 Imdur Er PO 30 mg DAILY JASS Administration Sodium Chloride 10 ml 12/01/18 09:14 12/03/18 21:20 Flush - Normal Saline IVF 10 ml PRN PRN Administration Saline Flush - Exam Neck: negative: supple, symmetric, no JVD, no thyromegaly, no lymphadenopathy, no carotid bruit, JVD Heart: negative: RRR, no murmur, no gallops, no rubs, normal peripheral pulses, irregular, diminshed peripheral pulses, murmur present, II/IV, III/IV Respiratory: negative: CTAB, no wheezes, no rales, no ronchi, normal chest expansion, no tachypnea, normal percussion, rales, rhonchi, tachypneic, wheezes Hosp A/P (1) Acute CVA (cerebrovascular accident) Code(s): I63.9 - CEREBRAL INFARCTION, UNSPECIFIED Status: Acute (2) Cellulitis of left leg Code(s): L03.116 - CELLULITIS OF LEFT LOWER LIMB Status: Acute (3) Anemia Code(s): D64.9 - ANEMIA, UNSPECIFIED Status: Acute (4) GI bleed Code(s): K92.2 - GASTROINTESTINAL HEMORRHAGE, UNSPECIFIED Status: Acute (5) Afib Code(s): I48.91 - UNSPECIFIED ATRIAL FIBRILLATION Status: Chronic (6) PVD (peripheral vascular disease) Code(s): I73.9 - PERIPHERAL VASCULAR DISEASE, UNSPECIFIED Status: Chronic - Plan will change lasix to iv, will discontinue vanco. will continue to monitor hh. ASA stopped. given his hx of gi bleed will start AC marciano. 12/04 pt's hh is low, started on Ac will monitor hh if worse will readdress his AC. pt's left leg is wrapped. He does have a stent in his left leg.
[2018-12-04] MEDS: Acetaminophen 325 MG TAB PO PRN (16:58)
[2018-12-04] MEDS ORDERED: Atorvastatin Calcium 20 MG TAB PO SCH (21:00)
[2018-12-04] MEDS: Atorvastatin Calcium 40 MG TAB PO SCH (21:02)
[2018-12-04] MEDS: Carvedilol 3.125 MG TAB PO SCH (21:02)
[2018-12-05] MEDS: Piperacillin/Tazobactam 2.25 GM in Sodium Chloride 0.9% 100 ML IVPB SCH (06:00)
[2018-12-05] MEDS: Furosemide 40 MG/4 ML VIAL SLOW IVP SCH (06:00)
[2018-12-05 06:10] LABS: #Eosinphils 0.1 thou/uL (0.0-0.7); #Lymphocytes 1.3 thou/uL (1.20-3.40); #Monocytes 1.3 thou/uL (0.11-0.59); #Neutrophils 12.5 thou/uL (1.40-6.50); %Eosinophils 0.8 % (0.0-10.0); %Lymphocytes 8.7 % (21.0-51.0); %Monocytes 8.3 % (0.0-10.0); %Neutrophils 82.1 % (42.0-75.0); Hemoglobin 8.3 g/dL (14.0-18.0); Mean Corpuscular HGB CONC 31.5 g/dL (32.0-36.0); Mean Corpuscular Hemoglobin 33.1 pg (27.0-31.0); Mean Platelet Volume 7.7 fL (7.4-10.4); Platelet Count 430 thou/uL (130-400); RBC Distribution Width 16.3 % (11.5-14.5); White Blood Cell (WBC) Count 15.2 thou/uL (4.8-10.8)
[2018-12-05 06:33] LABS: Anion Gap 15 mmol/L (10-20); BUN (Urea Nitrogen) 43 mg/dL (8.4-25.7); Calc. Creatinine Clearance 31 mL/min (70-130); Calcium 9.2 mg/dL (7.8-10.44); Carbon Dioxide 25 mmol/L (23-31); Chloride 100 mmol/L (98-107); Estimated GFR-MDRD 39; Glucose 125 mg/dL (83-110); Sodium 136 mmol/L (136-145)
[2018-12-05] MEDS ORDERED: Magnesium Oxide 400 MG TAB PO SCH (09:00)
[2018-12-05] MEDS: Allopurinol 100 MG TAB PO SCH (09:16)
[2018-12-05] MEDS: Ferrous Sulfate 325 MG TAB PO SCH ×2 (09:16→17:14)
[2018-12-05] MEDS: Isosorbide Mononitrate (ER) 30 MG TAB PO SCH (09:16)
[2018-12-05] MEDS: hydrALAZINE 25 MG TAB PO SCH ×3 (09:18→17:14)
[2018-12-05] MEDS: Carvedilol 3.125 MG TAB PO SCH (09:18)
[2018-12-05] MEDS: Ubidecarenone 50 MG CAP PO SCH (09:18)
[2018-12-05] MEDS: Apixaban 2.5 MG TAB PO SCH (09:50)
[2018-12-05] MEDS: Acetaminophen 325 MG TAB PO PRN (09:52)
[2018-12-05 15:30] VITALS: BP 123/58; TEMP 97.6
--- NOTE | 2018-12-05 20:25 | DIS ---
DATE OF ADMISSION: 12/01/2018 DATE OF DISCHARGE: 12/05/2018 DISCHARGE DIAGNOSES: 1. Acute cerebrovascular accident. 2. Cellulitis of the left leg. 3. Anemia. 4. Gastrointestinal bleed. 5. Atrial fibrillation. 6. Peripheral vascular disease. HOSPITAL COURSE: The patient is an 83-year-old male who initially presented to the hospital on 12/01, with complaints of swelling of his left lower leg and also his arm. He felt weakness of his right arm and of his right leg. The patient underwent a stroke workup. He initially has a history of atrial fibrillation, only on aspirin due to prior GI bleed on anticoagulation. 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 He also had extensive hyperintensities, chronic small-vessel changes. At this time, Cardiology was consulted. He also had a carotid Doppler which did not indicate any significant stenosis. He had left lower extremity venous Doppler, which did not indicate any deep vein thrombosis, however had mildly prominent lymph nodes in the left inguinal region. The patient underwent also an echocardiogram which indicated an EF 50% to 55% with atrial fibrillation, mild elevated pulmonary artery pressure, and [id number] tricuspid thickness. The patient at this time given the complexity, his aspirin was stopped and he was put on Eliquis 2.5 mg twice a day. He was observed overnight after putting him on the Eliquis. His H and H was 8.3. Initially was 9.4, went down to 7.9, this was not while he was on anticoagulation. After he was put on anticoagulation, it went up to 8.3. I have instructed the that if he starts having any signs of GI bleeds or any dizziness that she needs to bring the patient back to the hospital. The patient continued to improve his left lower extremities. He was put on antibiotics and he was seen by Wound Care for dressing. He was also put on IV diuretics which were changed back to his p.o. HOME MEDICATIONS: 1. Amoxicillin 500 mg b.i.d. 2. Eliquis 2.5 b.i.d. 3. Atorvastatin 40 mg at bedtime. 4. Doxycycline 100 mg b.i.d. 5. Allopurinol 150 daily. 6. Coreg 3.125 p.o. b.i.d. 7. Iron 325 twice a day. 8. Isosorbide 30 mg daily. 9. Hydralazine 25 mg t.i.d. 10. Lasix 40 mg daily. Of note, his creatinine on discharge was 2.01 from his baseline of 1.8. I did talk with the patient's and recommended holding the Lasix for the next couple of days and blood work to be checked on Friday and also to make sure that he follows up with his primary to restart his Lasix and his Lasix will only be 40 mg once a day instead of 80 and 40 and the patient's understood this. PHYSICAL EXAMINATION: VITAL SIGNS: Temperature of 98.6, pulse 88, respirations 20, 100% on room air, blood pressure 103/51. GENERAL: He is awake, alert, and oriented x3. Does not appear in distress. CV: S1 and S2 present. No murmurs, rubs, or gallops. ABDOMEN: Soft and nontender. Bowel sounds are present x2. EXTREMITIES: He does have significant swelling on his left lower extremity, which according to the patient has improved. NEUROLOGICAL: Minimal deficits to the right side. PLAN: PT and Home Health have been arranged and there are specific instructions for his left wound dressing changes. 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 Job ID: [id number]
[2018-12-05] MEDS ORDERED: Doxycycline 100 MG CAP PO SCH (21:00)
[2018-12-05] MEDS ORDERED: AMOXicillin 250 MG CAP PO SCH (21:00)
[2018-12-06] MEDS ORDERED: Furosemide 40 MG/4 ML VIAL SLOW IVP SCH (09:00)
== END 2018-12-05 17:33 | disposition home health service (06) | DRG 65 ==
LOC: ERS 21:12 → 2SE 12-01 05:43
PROVIDERS: ADMIT Hospitalist; ATTEND Hospitalist
DX: I63.431 Cerebral infarction due to embolism of right posterior cerebral artery (principal); L03.116 Cellulitis of left lower limb; G81.91 Hemiplegia, unspecified affecting right dominant side; I73.9 Peripheral vascular disease, unspecified; I11.0 Hypertensive heart disease with heart failure; I50.9 Heart failure, unspecified; F17.210 Nicotine dependence, cigarettes, uncomplicated; I25.10 Atherosclerotic heart disease of native coronary artery without angina pectoris; J44.9 Chronic obstructive pulmonary disease, unspecified; D53.9 Nutritional anemia, unspecified; I48.2 Chronic atrial fibrillation; R29.704 NIHSS score 4; R40.2362 Coma scale, best motor response, obeys commands, at arrival to emergency department; R40.2142 Coma scale, eyes open, spontaneous, at arrival to emergency department; R40.2252 Coma scale, best verbal response, oriented, at arrival to emergency department; Z86.73 Personal history of transient ischemic attack (TIA), and cerebral infarction without residual deficits; Z79.82 Long term (current) use of aspirin; Z79.899 Other long term (current) drug therapy
CPT/HCPCS: 36415; 70551; 80048; 80053; 80061; 80202; 82607; 82728; 82746; 83540; 83550; 85025; 93306; 93880; 99285; J1644; J1750; J1756; J1940; J2543; J3370; J3490; J7050